=== PATIENT | male | born 1985 | race Caucasian/White ===

== ENCOUNTER 2017-01-16 19:38 | Emergency (ER) | payer OTHER ==
--- NOTE | ~2017-01-16 | EKG ---
PATIENT: DELILAH REAVES UNIT #: [id number] Ventricular Rate: 143 BPM Atrial Rate: 143 BPM P-R Interval: 130 ms QRS Duration: 100 ms Q-T Interval: 300 ms QTC Calculation(Bezet): 463 ms P [place]: 86 degrees Calculated R [place]: 47 degrees Calculated T [place]: 50 degrees Diagnosis Line: Sinus tachycardia Diagnosis Line: Possible Left atrial enlargement Diagnosis Line: Incomplete right bundle branch block Diagnosis Line: Borderline ECG Diagnosis Line: No previous ECGs available Diagnosis Line: Confirmed by TAHIR BONILLA MD ([id number]) on 01/21/2017 Diagnosis Line: 2:41:04 PM INTERPRETING MD: CAHD CLEMONS
[2017-01-16 20:33] LABS: BASOPHIL# 0.1 X10e3 (0-0.3); BASOPHIL% 0.5 % (0-2.5); EOSINOPHIL# 0.2 X10e3 (0-0.7); HEMATOCRIT 39.2 % (38.0-50.0); HEMOGLOBIN 12.9 gm/dL (13.0-16.0); LYMPHOCYTE# 1.8 X10e3 (1.0-3.5); LYMPHOCYTE% 14.5 % (17.0-45.0); MEAN CELL VOLUME 84.6 FL (83-96); MEAN CORPUSCULAR HEMOGLOBIN 27.8 PG (28-34); MEAN CORPUSCULAR HGB CONC 32.8 g/dL (30-36); MEAN PLATELET VOLUME 7.8 FL (6.5-11.5); MONOCYTE# 1.1 X10e3 (0-1.0); MONOCYTE% 9.3 % (3.0-12.0); NEUTROPHIL# 8.9 X10e3 (1.5-7.1); NEUTROPHIL% 73.7 % (40-75); PLATELET COUNT 335 X10e3 (140-420); RED BLOOD COUNT 4.63 X10e (3.90-5.60); RED CELL DISTRIBUTION WIDTH 12.8 % (11.0-15.5); WHITE BLOOD COUNT 12.1 X10e3 (4.0-10.5)
[2017-01-16 20:34] LABS: DIFF IND NO
[2017-01-16 20:54] LABS: PARTIAL THROMBOPLASTIN TIME 26.2 SECONDS (23.5-31.3); PROTHROMBIN TIME (PATIENT) 10.8 SECONDS (10.0-11.7)
[2017-01-16 20:55] LABS: ACETAMINOPHEN <10 ug/mL; ALBUMIN SERUM 4.4 g/dL (3.5-5.0); ALCOHOL BLOOD <5 mg/dL (0); ALKALINE PHOSPHATASE 79 U/L (32-92); ALT (SGPT) 17 U/L (10-40); AST (SGOT) 40 U/L (10-42); BILIRUBIN, DIRECT 0.2 mg/dL (0.0-0.2); BILIRUBIN,INDIRECT 0.7 mg/dL (0.0-0.9); BILIRUBIN,TOTAL 0.9 mg/dL (0.2-2.0); BLOOD UREA NITROGEN 12 mg/dL (9-23); CALCIUM SERUM 9.2 mg/dL (8.4-10.2); CARBON DIOXIDE 19 mmol/L (22-31); CHLORIDE 102 mmol/L (100-111); CPK (CREATINE PHOSPHOKINASE) 605 IU/L (36-174); CREATININE SERUM 1.1 mg/dL (0.6-1.4); GLOM FILT RATE Estimated 89.6 mL/min (>60); GLUCOSE FASTING 134 mg/dL (70-110); POTASSIUM 3.9 mmol/L (3.5-5.1); PROTEIN TOTAL SERUM 8.1 g/dL (6.0-8.3); SALICYLATE <4.0 mg/dL; SODIUM 133 mmol/L (135-145)
[2017-01-16 21:03] LABS: POC - CKMB 2.1 ng/mL (0.0-7.9); POC - TROPONIN <0.05 ng/mL (<=0.05)
[2017-04-09] MEDS ORDERED: BACTROBAN15 GM (13:58)
[2017-04-09] MEDS ORDERED: NORCO 7.5-3251 EACH PO (13:59)
[2017-04-09] MEDS ORDERED: NICOTINE PATCH1 EAC1 (13:59)
[2017-04-09] MEDS ORDERED: BACTRIM DS TAB1 EACH PO (14:00)
== END 2017-01-17 02:24 | disposition home or self-care (01) ==
LOC: CED 19:38
PROVIDERS: Student in an Organized Health Care Education/Training Program
DX: F14.129 Cocaine abuse with intoxication, unspecified (principal); F11.129 Opioid abuse with intoxication, unspecified; F15.129 Other stimulant abuse with intoxication, unspecified; F17.200 Nicotine dependence, unspecified, uncomplicated
CPT/HCPCS: 36415; 80048; 80076; 82550; 82553; 84484; 85025; 85610; 85730; 93005; 96374; 96375; 99285; G0480; J1630; J2060

== ENCOUNTER 2017-02-06 11:12 | Emergency (ER) | payer OTHER ==
[2017-02-06] MEDS ORDERED: NO MEDICATIONS (11:27)
[2017-04-09] MEDS ORDERED: BACTROBAN15 GM (13:58)
[2017-04-09] MEDS ORDERED: NICOTINE PATCH1 EAC1 (13:59)
[2017-04-09] MEDS ORDERED: NORCO 7.5-3251 EACH PO (13:59)
[2017-04-09] MEDS ORDERED: BACTRIM DS TAB1 EACH PO (14:00)
== END 2017-02-06 13:33 | disposition home or self-care (01) ==
LOC: SED 11:12
DX: L02.414 Cutaneous abscess of left upper limb (principal); L02.413 Cutaneous abscess of right upper limb; L03.114 Cellulitis of left upper limb; L03.113 Cellulitis of right upper limb; F17.210 Nicotine dependence, cigarettes, uncomplicated; Z23 Encounter for immunization
CPT/HCPCS: 10060; 90471; 90715; 99283